=== PATIENT | male | born 1980 | race African-American/Black ===

== ENCOUNTER 2019-07-08 03:26 | Emergency (ER) | payer MEDICAID, OTHER ==
[~2019-07-08] VITALS: Ht 190.5 cm; Wt 76.0 kg
[2019-07-08 05:41] LABS: BASOPHILS % 0.3 % (0.0-2.0); EOSINOPHILS % 2.6 % (0.0-5.0); LYMPHOCYTES % 35.9 % (20.0-50.0); MEAN CORPUSCULAR HEMOGLOBIN 31.3 pg (28.0-32.0); MEAN CORPUSCULAR VOLUME 94.1 fL (80.0-94.0); MEAN PLATELET VOLUME 9.6 fl (7.4-10.4); MONOCYTES % 6.1 % (2.0-8.0); NEUTROPHILS % 55.1 % (40.0-76.0); PLATELET 161 x1000/uL (130-400); RED BLOOD CELL COUNT 4.47 mill/uL (4.7-6.1); RED CELL DISTRIBUTION WIDTH 13.1 % (11.6-14.6)
[2019-07-08 05:42] LABS: CHLORIDE 107 mEq/L (98-107)
[2019-07-08 06:16] LABS: CLARITY URINE CLEAR (CLEAR); COLOR URINE YELLOW (YELLOW); KETONES URINE TRACE (NEGATIVE); LEUKOCYTE ESTERASE URINE 1+ (NEGATIVE); NITRITE URINE NEGATIVE (NEGATIVE); OCCULT BLOOD URINE NEGATIVE (NEGATIVE); PROTEIN URINE NEGATIVE (NEGATIVE); SPECIFIC GRAVITY URINE 1.024 (1.005-1.030)
[2019-07-08] MEDS ORDERED: TRAMADOL 50MG TABLET PO ONE (08:45)
[2019-07-08] MEDS ORDERED: SODIUM CHLORIDE 0.9% 1,000 ML IV ONE (08:45)
[2019-07-08] MEDS ORDERED: CEPHALEXIN 250MG CAPSULE PO ONE (08:45)
[2019-07-08 08:57] VITALS: BP 103/61
== END 2019-07-08 10:20 | disposition home or self-care (01) ==
LOC: ER 03:26
DX: N39.0 Urinary tract infection, site not specified (principal); R11.10 Vomiting, unspecified; K59.00 Constipation, unspecified; F17.200 Nicotine dependence, unspecified, uncomplicated; J45.909 Unspecified asthma, uncomplicated
CPT/HCPCS: 36415; 74018; 80053; 81003; 83690; 85025; 87086; 96360; 99284; J7030